=== PATIENT | female | born 1950 | race Caucasian/White ===

== ENCOUNTER 2020-07-23 19:06 | Emergency (ER) | payer OTHER ==
[~2020-07-23 19:06] MED LIST: BACTRIM DS TAB1 EACH PO; COZAAR 25MG TAB25 MG PO; DIFLUCAN150 MG PO; MIRALAX17 GM PO; SYNTHROID75 MCG PO
[2020-07-23] MEDS ORDERED: CEPHALEXIN500 M1 PO (21:46)
== END 2020-07-23 22:18 | disposition home or self-care (01) ==
LOC: FER 19:06
DX: S61.412A Laceration without foreign body of left hand, initial encounter (principal); Z23 Encounter for immunization; Z88.8 Allergy status to other drugs, medicaments and biological substances; W29.8XXA Contact with other powered hand tools and household machinery, initial encounter; Y92.009 Unspecified place in unspecified non-institutional (private) residence as the place of occurrence of the external cause
CPT/HCPCS: 73110; 73130; 90471; 90715